=== PATIENT | male | born 1970 | race Caucasian/White ===

== ENCOUNTER 2016-07-18 22:43 | Emergency (ER) | payer SELFPAY ==
[2016-07-18] MEDS ORDERED: Benzocaine 20% Topical Spray UD MUCMEM ONE (22:57)
[2016-07-18] MEDS ORDERED: Lidocaine 2% Viscous Solution 15 ML Cup PO ONE (22:57)
--- NOTE | 2016-07-18 23:02 | EDM.PDOC ---
ED HPI GENERAL MEDICAL PROBLEM - General Chief Complaint: General Stated Complaint: ABCESS TOOTH Time Seen by Provider: 07/18/16 22:48 - History of Present Illness INITIAL COMMENTS - FREE TEXT/NARRATIVE: HISTORY AND PHYSICAL: History of present illness: The patient is a 46 y/o male who presents with a long-standing history of dental problems and dental disease that he has ignored caring for and complains of pain to his left upper canine tooth. He states he has had some swelling of his left maxillary area that started today and the pain started yesterday. He feels that the pain is shooting up he has no systemic complaints of fever chills runny nose congestion vomiting or abdominal complaints. Patient does not live here locally but is here working. He is not consult were seen a dentist for these long-standing problems. Review of systems: As per history of present illness and below otherwise all systems reviewed and negative. Past medical history: As per history of present illness and as reviewed below otherwise noncontributory. Surgical history: As per history of present illness and as reviewed below otherwise noncontributory. Social history: No reported history of drug or alcohol abuse. Family history: As per history of present illness and as reviewed below otherwise noncontributory. Physical exam: General: Well-developed well-nourished man who is nontoxic vital signs are noted by me. HEENT: Atraumatic, normocephalic, pupils reactive, negative for conjunctival pallor or scleral icterus, mucous membranes moist, throat clear, neck supple, nontender, trachea midline. There is no cervical adenopathy or nuchal rigidity. There is minimal soft tissue swelling of the left maxillary area without crepitus. There are multiple areas of tooth fractures and dental decay as well as missing teeth and there is tenderness to tap of the left upper canine tooth without any gross abdominal swelling. Lungs: Clear to auscultation, breath sounds equal bilaterally, chest nontender. Heart: S1S2, regular rate and rhythm no overt murmurs Abdomen: Soft, nondistended, nontender. NABS Genitourinary: Deferred. Rectal: Deferred. Extremities: Atraumatic, negative for cords or calf pain. Neurovascular unremarkable. Neuro: Awake, alert, oriented. Cranial nerves II through XII unremarkable. Cerebellum unremarkable. Motor and sensory unremarkable throughout. Exam nonfocal. Diagnostics: [] Therapeutics: Dental balls Impression: Extensive dental disease and decay, dental pain Definitive disposition and diagnosis as appropriate pending reevaluation and review of above. left upper tooth Pain Score (Numeric/FACES): 7 - Related Data Allergies Allergy/AdvReac Type Severity Reaction Status Date / Time pentazocine [From [facility]] Allergy Other Verified 07/18/16 22:48 Home Meds: Home Meds . [No Known Home Meds] 07/18/16 [History] Past Medical History HEENT History: Reports: None Cardiovascular History: Reports: None Respiratory History: Reports: None Gastrointestinal History: Reports: None Genitourinary History: Reports: None Musculoskeletal History: Reports: None Neurological History: Reports: None Psychiatric History: Reports: None Endocrine/Metabolic History: Reports: None Hematologic History: Reports: None Immunologic History: Reports: None Oncologic (Cancer) History: Reports: None Dermatologic History: Reports: Psoriasis - Infectious Disease History Infectious Disease History: Reports: None Social & Family History - Family History Family Medical History: Noncontributory - Tobacco Use Smoking Status *Q: Former Smoker Used Tobacco, but Quit: No - Caffeine Use Caffeine Use: Reports: Soda - Recreational Drug Use Recreational Drug Use: No ED ROS GENERAL - Review of Systems Review Of Systems: ROS reveals no pertinent complaints other than HPI. ED EXAM, GENERAL - Physical Exam Exam: See Below (See dictation) Course - Vital Signs Last Recorded V/S: Last Vital Signs Temp 36 C 07/18/16 22:48 Pulse 16 L 07/18/16 22:48 Resp 16 07/18/16 22:48 BP 140/88 07/18/16 22:48 Pulse Ox 96 07/18/16 22:48 - Orders/Labs/Meds Orders: Active Orders 24 hr Category Date Time Status Benzocaine [Hurricaine One 20%] Med 07/18/16 22:57 Once 2 each MUCMEM ONETIME ONE Lidocaine 2% [Xylocaine 2% Viscous] Med 07/18/16 22:57 Once 15 ml PO ONETIME ONE Medication Orders Benzocaine (Hurricaine One 20%) 2 each MUCMEM ONETIME ONE Stop: 07/18/16 22:58 Lidocaine HCl (Xylocaine 2% Viscous) 15 ml PO ONETIME ONE Stop: 07/18/16 22:58 Meds: Medications Generic Name Dose Route Start Last Admin Trade Name Freq PRN Reason Stop Dose Admin Benzocaine 2 each 07/18/16 22:57 Hurricaine One 20% MUCMEM 07/18/16 22:58 ONETIME ONE Lidocaine HCl 15 ml 07/18/16 22:57 Xylocaine 2% Viscous PO 07/18/16 22:58 ONETIME ONE Departure - Departure Time of Disposition: 23:00 Disposition: Home, Self-Care 01 Condition: good Clinical Impression: Dental disease, Pain, dental - Discharge Information Forms: ED Department Discharge Additional Instructions: The following information is given to patients seen in the emergency department who are being discharged to home. This information is to outline your options for follow-up care. We provide all patients seen in our emergency department with a follow-up referral. The need for follow-up, as well as the timing and circumstances, are variable depending upon the specifics of your emergency department visit. If you don't have a primary care physician on staff, we will provide you with a referral. We always advise you to contact your personal physician following an emergency department visit to inform them of the circumstance of the visit and for follow-up with them and/or the need for any referrals to a consulting specialist. The emergency department will also refer you to a specialist when appropriate. This referral assures that you have the opportunity for followup care with a specialist. All of these measure are taken in an effort to provide you with optimal care, which includes your followup. Under all circumstances we always encourage you to contact your private physician who remains a resource for coordinating your care. When calling for followup care, please make the office aware that this follow-up is from your recent emergency room visit. If for any reason you are refused follow-up, please contact the [facility] emergency department at and ask to speak to the emergency department charge nurse. [facility] Primary care- Internal Medicine and Family [address] [address] Use ice to face to help with swelling and use dental balls given to you in the ER as directed and needed. Please call and followup with a local dentist for definitive care and treatment and return to ER as needed and as discussed. Please use the prescriptions given to you through [facility]--- amoxicillin and tramadol as well as [id number] Tylenol/ibuprofen - My Orders Last 24 Hours: My Active Orders 07/18/16 22:57 Benzocaine [Hurricaine One 20%] 2 each MUCMEM ONETIME ONE Lidocaine 2% [Xylocaine 2% Viscous] 15 ml PO ONETIME ONE - Assessment/Plan Last 24 Hours: My Active Orders 07/18/16 22:57 Benzocaine [Hurricaine One 20%] 2 each MUCMEM ONETIME ONE Lidocaine 2% [Xylocaine 2% Viscous] 15 ml PO ONETIME ONE
[2016-07-18 23:21] VITALS: BP 141/88
== END 2016-07-18 23:15 | disposition home or self-care (01) ==
LOC: MW.ED 22:43
DX: K02.9 Dental caries, unspecified (principal); Z88.1 Allergy status to other antibiotic agents; Z87.891 Personal history of nicotine dependence
CPT/HCPCS: 99282; A9270; 99283